=== PATIENT | female | born 1950 | race Caucasian/White ===

== ENCOUNTER 2021-03-21 15:47 | Emergency (ER) | payer MEDICARE, OTHER ==
[2021-03-21 16:39] VITALS: BP 149/99; PULSE 81
[2021-03-21] MEDS ORDERED: Sodium Chloride 0.9% 10 ML Syringe FLUSH PRN (16:50)
[2021-03-21] MEDS ORDERED: Alum Hydrox/Mag Hydrox/Simeth 30 ML, Lidocaine 2% 15 ML PO ONE ×2 (16:50)
--- NOTE | 2021-03-21 17:50 | EDM.PDOC ---
ED HPI GENERAL MEDICAL PROBLEM - General Chief Complaint: Chest Pain Stated Complaint: TROUBLE BREATHING/CHEST DISCOMFORT Time Seen by Provider: 03/21/21 16:17 Source of Information: Reports: Patient History Limitations: Reports: No Limitations - History of Present Illness INITIAL COMMENTS - FREE TEXT/NARRATIVE: 70-year-old female presents the emergency department today with complaints of chest pain noted on the right side of her sternum. She describes the pain as sharp and intermittent. She states that chest pain initially started when she tested positive for Covid on February 01, 2021. She denies any recent fever, chills, nausea, vomiting or diarrhea. She states that she also notes some epigastric discomfort and states she questions whether or not she may have heart burn. She does have what she describes as a vinegar taste intermittently. She however states she does take a proton pump inhibitor daily. She denies any history of smoking or excessive alcohol or caffeine intake. Denies recent use of NSAIDs. She denies noting any black or tarry stools. Her primary care provider is Nalini Johnson and Shawna Green. Middle Chest Pain Score (Numeric/FACES): 5 - Related Data Allergies Allergy/AdvReac Type Severity Reaction Status Date / Time cat dander Allergy Itching Verified 05/22/19 12:57 codeine Allergy Hallucinati Verified 02/26/15 04:13 [employer] ons dog dander Allergy Itching Verified 05/22/19 12:57 grass pollen Allergy Itching Verified 05/22/19 12:56 horse dander Allergy Itching Verified 05/22/19 12:57 tree and shrub pollen Allergy Itching Verified 05/22/19 12:56 Home Meds: Home Meds Celecoxib [CeleBREX] 100 mg PO DAILY 02/26/15 [History] Hydrocodone/Acetaminophen [Hydrocodon-Acetaminophn 10-325] 10 mg PO TID 02/26/15 [History] Metoprolol Succinate [Toprol Xl] 100 mg PO DAILY 02/26/15 [History] Omeprazole 20 mg PO DAILY 02/26/15 [History] Zolpidem [Ambien] 10 mg PO BEDTIME 02/26/15 [History] Apixaban [Eliquis] 5 mg PO BID #60 tablet 03/21/21 [Rx] Furosemide 20 mg PO DAILY #5 tablet 03/21/21 [Rx] Past Medical History Other Musculoskeletal History: back surg had a metal pricilla placed. surg on rig shoulders. Has degenerative disc in neck area. - Infectious Disease History Infectious Disease History: Reports: Measles, Mumps, Novel Coronavirus, Scarlet Fever - Past Surgical History Female Surgical History: Reports: Tubal Ligation, Other (See Below) Other Female Surgeries/Procedures: cyst to ovaries Musculoskeletal Surgical History: Reports: Carpal Tunnel, Knee Replacement Other Musculoskeletal Surgeries/Procedures:: does not have and cartalage in left knee. righ elbow surgrery Social & Family History - Tobacco Use Tobacco Use Status *Q: Never Tobacco User - Caffeine Use Caffeine Use: Reports: Tea - Recreational Drug Use Recreational Drug Use: No ED ROS GENERAL - Review of Systems Review Of Systems: Comprehensive ROS is negative, except as noted in HPI. ED EXAM, GENERAL - Physical Exam Exam: See Below Exam Limited By: No Limitations General Appearance: Alert, WD/WN, No Apparent Distress Ears: Normal External Exam, Hearing Grossly Normal Nose: Normal Inspection Throat/Mouth: Normal Inspection, Normal Lips, Normal Voice, No Airway Compromise Head: Atraumatic, Normocephalic Neck: Normal Inspection, Supple Respiratory/Chest: No Respiratory Distress, Lungs Clear, Normal Breath Sounds, No Accessory Muscle Use, Chest Non-Tender Cardiovascular: Normal Peripheral Pulses, Irregularly Irregular. No: No Edema (Trace to bilateral lower extremities) Peripheral Pulses: 2+: Radial (L), Radial (R) GI/Abdominal: Normal Bowel Sounds, Soft, Non-Tender, No Distention (Female) Exam: Deferred Rectal (Female) Exam: Deferred Back Exam: Normal Inspection, Full Range of Motion Extremities: Normal Inspection, Normal Range of Motion, Non-Tender, Normal Capillary Refill, Pedal Edema (Trace to bilateral lower extremities) Neurological: Alert, Oriented, Normal Cognition Psychiatric: Normal Affect, Normal Mood Skin Exam: Warm, Dry, Intact, Normal Color, No Rash Lymphatic: No Adenopathy #1 Interpretation EKG Date: 03/21/21 Time: 17:00 Rhythm: A-Fib Rate (Beats/Min): 72 [place]: Normal P-Wave: Absent QRS: Normal ST-T: Normal QT: Normal Comparison: NA - No Prior EKG EKG Interpretation Comments: Dr. Brothers interpretation: Atrial fibrillation at a rate of 72 bpm; borderline low voltage, extremity leads; RSR prime in V1 or V2, right VCD or RVH Course - Vital Signs Text/Narrative:: As stated above, patient presents with right-sided chest pain at the sternal area. States pain is stabbing and comes and goes. She also did complain some epigastric discomfort intermittently. Last Recorded V/S: Last Vital Signs Temp 97.7 F 03/21/21 16:35 Pulse 81 03/21/21 16:35 Resp 18 03/21/21 16:35 BP 149/99 H 03/21/21 16:35 Pulse Ox 100 03/21/21 16:35 - Orders/Labs/Meds Orders: Active Orders 24 hr Category Date Time Status Furosemide [Lasix] Med 03/21/21 19:13 Once 20 mg PO ONETIME ONE Sodium Chloride 0.9% [Saline Flush] Med 03/21/21 16:50 Active 10 ml FLUSH ASDIRECTED PRN Saline Lock Insert [OM.PC] Stat Oth 03/21/21 16:50 Ordered Medication Orders Furosemide (Furosemide 20 Mg Tab) 20 mg PO ONETIME ONE Stop: 03/21/21 19:14 Sodium Chloride (Sodium Chloride 0.9% 10 Ml Syringe) 10 ml FLUSH ASDIRECTED PRN PRN Reason: Keep Vein Open Labs: Laboratory Tests 03/21/21 03/21/21 03/21/21 Range/Units 17:30 17:30 17:30 WBC 5.52 (3.98-10.04) K/mm3 RBC 3.82 L (3.98-5.22) M/mm3 Hgb 10.9 L D (11.2-15.7) gm/dl Hct 35.1 (34.1-44.9) % MCV 91.9 (79.4-94.8) fl MCH 28.5 (25.6-32.2) pg MCHC 31.1 L (32.2-35.5) g/dl RDW Std Deviation 47.0 H (36.4-46.3) fL Plt Count 284 (182-369) K/mm3 MPV 10.1 (9.4-12.3) fl Neut % (Auto) 53.4 (34.0-71.1) % Lymph % (Auto) 30.8 (19.3-51.7) % [place] % (Auto) 9.6 (4.7-12.5) % Eos % (Auto) 5.3 (0.7-5.8) Baso % (Auto) 0.9 (0.1-1.2) % Neut # (Auto) 2.95 (1.56-6.13) K/mm3 Lymph # (Auto) 1.70 (1.18-3.74) K/mm3 [place] # (Auto) 0.53 H (0.24-0.36) K/mm3 Eos # (Auto) 0.29 (0.04-0.36) K/mm3 Baso # (Auto) 0.05 (0.01-0.08) K/mm3 Sodium 142 (136-145) mEq/L Potassium 4.3 (3.5-5.1) mEq/L Chloride 107 (98-107) mEq/L Carbon Dioxide 28 (21-32) mEq/L Anion Gap 11.3 (5-15) BUN 22 H (7-18) mg/dL Creatinine 0.9 (0.55-1.02) mg/dL Est Cr Clr Drug Dosing 52.89 mL/min Estimated GFR (MDRD) > 60 (>60) mL/min BUN/Creatinine Ratio 24.4 H (14-18) Glucose 121 H (70-99) mg/dL Calcium 8.8 (8.5-10.1) mg/dL Magnesium 2.3 (1.8-2.4) mg/dL Total Bilirubin 0.2 (0.2-1.0) mg/dL AST 22 (15-37) U/L ALT 32 (14-59) U/L Alkaline Phosphatase 122 H (46-116) U/L Troponin I < 0.017 (0.00-0.056) ng/mL C-Reactive Protein < 0.2 (<1.0) mg/dL NT-Pro-B Natriuret Pep 2516 H (0-125) pg/mL Total Protein 7.1 (6.4-8.2) g/dl Albumin 3.6 (3.4-5.0) g/dl Globulin 3.5 gm/dL Albumin/Globulin Ratio 1.0 (1-2) Meds: Medications Generic Name Dose Route Start Last Admin Trade Name Freq PRN Reason Stop Dose Admin Furosemide 20 mg 03/21/21 19:13 Furosemide 20 Mg Tab PO 03/21/21 19:14 ONETIME ONE Sodium Chloride 10 ml 03/21/21 16:50 Sodium Chloride 0.9% 10 Ml Syringe FLUSH ASDIRECTED PRN Keep Vein Open Discontinued Medications Generic Name Dose Route Start Last Admin Trade Name Saloq PRN Reason Stop Dose Admin Apixaban 5 mg 03/21/21 18:37 Apixaban 5 Mg Tab PO 03/21/21 18:38 ONETIME ONE Al Hydroxide/Mg Hydroxide 30 0 ml 03/21/21 16:50 03/21/21 18:23 ml/ Lidocaine HCl 15 ml PO 03/21/21 16:51 45 ml ONETIME ONE Administration - Re-Assessments/Exams Free Text/Narrative Re-Assessment/Exam: 03/21/21 18:39 Hematology reveals a WBC of 5.52, hemoglobin 10.9, hematocrit 35.1, chemistry reveals a sodium of 142, calcium 4.3, anion gap 11.3, BUN 22, creatinine 0.9, glucose 121, GFR greater than 60, magnesium 2.3, troponin less than 0.017, C- reactive protein less than 0.2 proBNP is pending Patient is in new onset atrial fibrillation since having Covid, however rate has been controlled. She will be started on Eliquis 5 mg twice daily. Patient does now mention that she believes her lower extremities have been more swollen of recent. She does have an appointment scheduled with her primary care provider for March 25, 2021 which is 4 days from now. Patient will likely need echocardi ogram since the development of new onset atrial fibrillation. States that Viscous Lidocaine did not help her chest discomfort. She states that it is worse when taking a deep breath in and out so it is likely pleuritic in origin. Could also be the result of Covid. She will need to follow-up with her primary care provider regarding this. 03/21/21 19:14 BNP 2516. We will give the patient 20 mg of Lasix p.o. now. Discussed the patient's lab results with her. She will be discharged home. We will send a prescription for Eliquis 5 mg twice daily to her pharmacy. We will also start her on Lasix 20 mg daily. She does have a follow-up with her primary care provider scheduled. We will also tell her to discontinue taking her Celebrex now that she is being started on Eliquis. 03/21/21 19:22 Radiologist impression portable view of the chest: 1. Nothing acute is appreciated on portable chest x-ray. Departure - Departure Time of Disposition: 19:15 Disposition: Home, Self-Care 01 Condition: Good Clinical Impression: New onset a-fib Congestive heart failure (CHF) Qualifiers: Heart failure type: unspecified Heart failure chronicity: unspecified Qualified Code(s): I50.9 - Heart failure, unspecified Prescriptions: Apixaban [Eliquis] 5 mg PO BID #60 tablet Furosemide 20 mg PO DAILY #5 tablet Instructions: Heart Failure, Self-Care, [id number], Heart Failure, Diagnosis, [id number], Atrial Fibrillation, [id number] Referrals: Shawna Green [employer] [Primary Care Provider] - Forms: ED Department Discharge Additional Instructions: You were seen in the emergency department today with complaints of chest disc omfort primarily located on the right side of your chest and epigastric pain. While in the emergency department numerous tests were completed to include chest x-ray, EKG and lab studies. Chest x-ray was unremarkable. EKG does reveal that you are in new onset atrial fibrillation. You state that this is new since development of Covid. You were given blood thinners while in the emergency department to prevent blood clots. You will need to take a medication called Eliquis 5 mg twice daily. You will need to go to the Eliquis website to obtain the coupon to take to your pharmacy for the discount. Watch for any signs and symptoms of gastrointestinal bleeding such as black tarry stools or bright red blood noted in your stools. You will need to stop taking your Celebrex as this can cause bleeding in your stomach which is worsened by taking Eliquis, a blood thinner. Also started you on a medication called Lasix or furosemide. This medication helps to reduce swelling and excess fluid in your heart and lungs. I have given you a 5-day supply. You will need to take 1 tab daily. And then Shawna Green will have to reevaluate whether or not you need to continue on this medication. You will also likely need to have an ultrasound of your heart due to the fact that you were newly diagnosed with atrial fibrillation. Be sure to drink plenty of fluids as the diuretic will pull fluids out of your system and can cause you to get more easily dehydrated. Be sure to keep your appointment with Shawna on . Should your condition worsen or change, do not hesitate returning to the emergency department. Sepsis Event Note (ED) - Focused Exam Vital Signs: Vital Signs Temp Pulse Resp BP Pulse Ox 03/21/21 16:35 97.7 F 81 18 149/99 H 100 - My Orders Last 24 Hours: My Active Orders 03/21/21 16:50 Sodium Chloride 0.9% [Saline Flush] 10 ml FLUSH ASDIRECTED PRN Saline Lock Insert [OM.PC] Stat 03/21/21 19:13 Furosemide [Lasix] 20 mg PO ONETIME ONE - Assessment/Plan Last 24 Hours: My Active Orders 03/21/21 16:50 Sodium Chloride 0.9% [Saline Flush] 10 ml FLUSH ASDIRECTED PRN Saline Lock Insert [OM.PC] Stat 03/21/21 19:13 Furosemide [Lasix] 20 mg PO ONETIME ONE
--- NOTE | 2021-03-21 18:26 | CR ---
Chest: Portable view of the chest was obtained. Comparison: No prior chest imaging is available. Heart size is within normal limits for portable technique. Upper mediastinum is within normal limits. Lungs are clear with no acute parenchymal change. No acute osseous abnormality is appreciated. Impression: 1. Nothing acute is appreciated on portable chest x-ray. Diagnostic code #1
[2021-03-21] MEDS ORDERED: Apixaban 5 MG Tab PO ONE (18:37)
[2021-03-21] MEDS ORDERED: Furosemide 20 MG Tab PO ONE (19:13)
== END 2021-03-21 19:45 | disposition home or self-care (01) ==
LOC: JD.ED 15:47
DX: I50.9 Heart failure, unspecified (principal); I48.91 Unspecified atrial fibrillation; Z88.5 Allergy status to narcotic agent; Z91.09 Other allergy status, other than to drugs and biological substances; Z79.899 Other long term (current) drug therapy; Z91.048 Other nonmedicinal substance allergy status
CPT/HCPCS: 36415; 71045; 80053; 83735; 83880; 84484; 85025; 86140; 93005; 99285; A9270; 93010

== ENCOUNTER 2025-03-08 09:17 | Emergency (ER) | payer MEDICARE ==
[2025-03-08] MEDS ORDERED: Diphtheria,Pertussis(Acell),Tetanus Vaccine 0.5 ML Syringe IM ONE (10:28)
[2025-03-08 11:54] VITALS: BP 125/72; PULSE 77
== END 2025-03-08 10:26 | disposition home or self-care (01) ==
LOC: JD.ED 09:17
DX: S51.812A Laceration without foreign body of left forearm, initial encounter (principal); I10 Essential (primary) hypertension; E78.00 Pure hypercholesterolemia, unspecified; I48.91 Unspecified atrial fibrillation; Z86.73 Personal history of transient ischemic attack (TIA), and cerebral infarction without residual deficits; Z86.16 Personal history of COVID-19; Z91.048 Other nonmedicinal substance allergy status; Z88.8 Allergy status to other drugs, medicaments and biological substances; Z91.018 Allergy to other foods; Z79.899 Other long term (current) drug therapy; W55.03XA Scratched by cat, initial encounter
CPT/HCPCS: 12001; 99282; J2003